=== PATIENT | female | born 1965 | race Caucasian/White ===

== ENCOUNTER 2017-02-19 15:19 | Inpatient (IN) | payer BC, OTHER ==
[~2017-02-19] VITALS: Ht 157.5 cm; Wt 64.2 kg
[2017-02-19 15:31] VITALS: BP 178/86; PULSE 90; RESP 19; TEMP 99.4; O2SAT 98
--- NOTE | 2017-02-19 15:39 | PD ---
HPI Chief Complaint: BA Time Seen by Provider: 15:28 Travel History International Travel<30 days: No Contact w/Intl Traveler<30days: No Traveled to known affect area: No History of Present Illness HPI Patient is a 51-year-old female who was brought to emergency room by PD under pemberton act for evaluation. As per PD, patient has been going into different condo 's and has been sneaking into homes and stealing items. PD found patient to be "unsafe to herself." Patient denies suicidal or homicidal ideations, denies use of drugs or alcohol, reports "I don't know why I was in the other condo's." [facility] Past Medical History Medical History: Denies Significant Hx Past Surgical History Surgical History: No Previous Surgery Social History Alcohol Use: No Tobacco Use: No Substance Use: No Allergies-Medications (Allergen,Severity, Reaction): Coded Allergies: No Known Allergies (Unverified , 02/19/17) Reported Meds & Prescriptions Reported Meds & Active Scripts Active No Active Prescriptions or Reported Medications Review of Systems General / Constitutional: No: Fever Eyes: No: Visual changes HENT: No: Headaches Cardiovascular: No: Chest Pain or Discomfort Respiratory: No: Shortness of Breath Gastrointestinal: No: Abdominal Pain Genitourinary: No: Dysuria Musculoskeletal: No: Pain Skin: No Rash Neurologic: No: Weakness Psychiatric: Positive: Disorder of Thought, Mood Disorder, No: Depression, Homicidal Ideation Endocrine: No: Polydipsia Hematologic/Lymphatic: No: Easy Bruising Physical Exam Narrative GENERAL: NAD SKIN: Focused skin assessment warm/dry. HEAD: Atraumatic. Normocephalic. EYES: Pupils equal and round. No scleral icterus. No injection or drainage. ENT: No nasal bleeding or discharge. Mucous membranes pink and moist. NECK: Trachea midline. No JVD. CARDIOVASCULAR: Regular rate and rhythm. No murmur appreciated. RESPIRATORY: No accessory muscle use. Clear to auscultation. Breath sounds equal bilaterally. GASTROINTESTINAL: Abdomen soft, non-tender, nondistended. Hepatic and splenic margins not palpable. MUSCULOSKELETAL: No obvious deformities. No clubbing. No cyanosis. No edema. NEUROLOGICAL: Awake and alert. No obvious cranial nerve deficits. Motor grossly within normal limits. Normal speech. PSYCHIATRIC: Agitated mood and affect; patient with a flight of ideas on evaluation MDM Medical Decision Making Medical Screen Exam Complete: Yes Emergency Medical Condition: Yes Medical Record Reviewed: Yes Differential Diagnosis ?Bipolar disorder Narrative Course Psychiatric labs ordered. Patient with no SI or HI, patient contacts for safety Scripts No Active Prescriptions or Reported Meds Latosha Thorne DO Feb 19, 2017 15:39
[2017-02-19 16:08] LABS: AUTOMATED NEUTROPHIL # 5.6 TH/MM3 (1.8-7.7); BASOPHIL # 0.1 TH/MM3 (0-0.2); BASOPHIL % 0.9 % (0.0-2.0); EOSINOPHIL # 0.1 TH/MM3 (0-0.4); EOSINOPHIL % 0.9 % (0.0-4.0); HEMATOCRIT 43.7 % (35.0-46.0); LYMPH % 27.9 % (9.0-44.0); LYMPHOCYTE # 2.5 TH/MM3 (1.0-4.8); MEAN CELL VOLUME 92.6 FL (80.0-100.0); MEAN CORPUSCULAR HEMOGLOBIN 29.8 PG (27.0-34.0); MEAN CORPUSCULAR HGB CONC 32.2 % (32.0-36.0); MEAN PLATELET VOLUME 9.2 FL (7.0-11.0); MONO % 8.5 % (0.0-8.0); MONOCYTE # 0.8 TH/MM3 (0-0.9); NEUT % 61.8 % (16.0-70.0); PLATELET COUNT 279 TH/MM3 (150-450); RED BLOOD COUNT 4.72 MIL/MM3 (4.00-5.30); RED CELL DISTRIBUTION WIDTH 13.9 % (11.6-17.2); WHITE BLOOD COUNT 9.1 TH/MM3 (4.0-11.0)
[2017-02-19 16:40] LABS: ALBUMIN 4.1 GM/DL (3.4-5.0); ALT (GPT) 30 U/L (10-53); AST (GOT) 27 U/L (15-37); BICARBONATE 26.2 MEQ/L (21.0-32.0); BLOOD UREA NITROGEN 18 MG/DL (7-18); CALCIUM 8.6 MG/DL (8.5-10.1); CHLORIDE 106 MEQ/L (98-107); CREATININE 1.08 MG/DL (0.50-1.00); GLOMERULAR FILTRATION RATE 53 ML/MIN (>89); GLUCOSE,RANDOM 130 MG/DL (74-106); SODIUM (NA) 141 MEQ/L (136-145)
[2017-02-19 16:43] LABS: ALKALINE PHOSPHATASE 86 U/L (45-117); TOTAL BILIRUBIN ADULT 0.4 MG/DL (0.2-1.0); TOTAL PROTEIN 8.4 GM/DL (6.4-8.2)
[2017-02-19 17:47] VITALS: BP 185/85; PULSE 86; RESP 18; TEMP 98.2; O2SAT 99
--- NOTE | 2017-02-19 18:42 | PD ---
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 As per the documentation she was " entering open condos for the past three days and taking random things and hiding them in different places" . PD found patient to be "unsafe to herself." It is also reported that she has not been medication as prescribed. EMR is reviewed. No previous contact with [facility] psychiatry dept. Current toxicology is positive for cannabinoids. Patient is seen in J pod. She appears stated age, dressed in [facility] with appropriate grooming. She is cooperative. She is hyperverbal and circumstantial. Reports that she has no recollection of her wandering or going into other rooms. She does report a 3 day period of interrupted sleep. Attributes to " going on in neighborhood". Attributes her behaviors to being dehydrated. She also reports that she has been cleaning a lot in the past 3 days because she is having company. Denies any suicdal or homicidal ideation, intent or plan. She denies any anxiety or depression. She denies any use of substances although her toxicology is positive for cannabinoids. In terms of psychiatric history she reports she took Prozac for 6 months " after I suffered a loss" but has not taken it in over 6 months. She would not elaborate on the nature of the loss. Telephone call with patient's verbal consent to her mother,Una Carson for collateral information at [phone]. Patient's father and mother are on their way to [place] and will arrive tomorrow afternoon. They deny that she has ever had any previous psychiatric history. Her father does report that she began a new medication last week to treat her eczema and that last week she called him and was " rambling on and not making much sense" . When I asked the patient about the medication she denies that he is taking any medication. PFSH Past Medical History Medical History: Denies Significant Hx Medical other: Yes (PT RAMBLED ON AND ATTEMPTED TO AVOID TALKING ABOUT MED HISTORY) ?: Not Past Surgical History Surgical History: No Previous Surgery Psychiatric History Psychiatric History Hx Psychiatric Treatment: Pt denied any previous. Did take Prozac x 6 months and currently not taking No previous hx of suicde atempts. History of Inpatient Treatment: No Guns or firearms in home: No Social History Single female, originally from [place]. Moved to [place] in 1991. 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 Hx Alcohol Use: No Hx Tobacco Use: No Hx Substance Use: Yes Substance Use Type: Alcohol, Marijuana Other Substances Used: occasionally Hx of Substance Use Treatment: No Family Psychiatric History None reported Allergies-Medications (Allergen,Severity, Reaction): Coded Allergies: No Known Allergies (Unverified , 02/19/17) Reported Meds & Prescriptions Reported Meds & Active Scripts Active No Active Prescriptions or Reported Medications Review of Systems Immunologic/allergic: COMPLAINS OF: Eczema Except as stated in HPI: all other systems reviewed are Neg Mental Status Examination Appearance: Appropriate Consciousness: Alert Orientation: x4 Motor Activity: Normal gait Speech: Rapid Language: Adequate Fund of Knowledge: Adequate Attention and Concentration: Adequate Memory: Impaired (reports has no memory of recent events) Mood: Appropriate Affect: Appropriate Thought Process & Associations: Circumstantial Thought Content: Appropriate Hallucination Type: None Delusion Type: None Suicidal Ideation: No Suicidal Plan: No Suicidal Intention: No Homicidal Ideation: No Homicidal Plan: No Homicidal Intention: No Insight: Poor Judgment: Impulsive MDM Medical Decision Making Medical Record Reviewed: Yes Assessment/Plan 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 As per the documentation she was " entering open condos for the past three days and taking random things and hiding them in different places" . PD found patient to be "unsafe to herself." It is also reported that she has not been medication as prescribed. Patient reports impaired sleep x 3 days, cleaning a lot as well as possibly being dehydrated. There is no suicidality or homicidality. Due to recent behaviors of what appear to be manic behavior in absence of nay previous psychiatric history , no previous contact [facility] psychiatry she will be admitted to inpatient psychiatry for further evaluation, stabilization and to maintain safety. Case discussed with Dr. Shane . Orders Orders Complete Blood Count With Diff (02/19/17 15:28) Comprehensive Metabolic Panel (02/19/17 15:28) Psych Screen (02/19/17 15:28) Drug Screen, Random Urine (02/19/17 15:28) Diet Regular Basic (02/19/17 Dinner) Results Vital Signs Date Time Temp Pulse Resp B/P (MAP) Pulse Ox O2 Delivery O2 Flow Rate FiO2 02/19/17 17:47 98.2 86 18 185/85 (118) 99 Room Air 02/19/17 15:31 99.4 90 19 178/86 (116) 98 Laboratory Tests Test 02/19/17 15:40 02/19/17 15:45 Urine Opiates Screen NEG Urine Barbiturates Screen NEG Urine Amphetamines Screen NEG Urine Benzodiazepines Screen NEG Urine Cocaine Screen NEG Urine Cannabinoids Screen POS White Blood Count 9.1 Red Blood Count 4.72 Hemoglobin 14.0 Hematocrit 43.7 Mean Corpuscular Volume 92.6 Mean Corpuscular Hemoglobin 29.8 Mean Corpuscular Hemoglobin Concent 32.2 Red Cell Distribution Width 13.9 Platelet Count 279 Mean Platelet Volume 9.2 Neutrophils (%) (Auto) 61.8 Lymphocytes (%) (Auto) 27.9 Monocytes (%) (Auto) 8.5 Eosinophils (%) (Auto) 0.9 Basophils (%) (Auto) 0.9 Neutrophils # (Auto) 5.6 Lymphocytes # (Auto) 2.5 Monocytes # (Auto) 0.8 Eosinophils # (Auto) 0.1 Basophils # (Auto) 0.1 CBC Comment DIFF FINAL Differential Comment Blood Urea Nitrogen 18 Creatinine 1.08 Random Glucose 130 Total Protein 8.4 Albumin 4.1 Calcium Level 8.6 Alkaline Phosphatase 86 Aspartate Amino Transf (AST/SGOT) 27 Alanine Aminotransferase (ALT/SGPT) 30 Total Bilirubin 0.4 Sodium Level 141 Potassium Level 3.5 Chloride Level 106 Carbon Dioxide Level 26.2 Anion Gap 9 Estimat Glomerular Filtration Rate 53 Diagnosis Primary Impression: Hypomanic episode Admitting Information Admitting Physician Requests: Admit (Dr. Shane) Prescriptions No Active Prescriptions or Reported Meds Sarah Goodwin [facility] Feb 19, 2017 18:42
--- NOTE | 2017-02-19 18:42 | PD ---
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 As per the documentation she was " entering open condos for the past three days and taking random things and hiding them in different places" . PD found patient to be "unsafe to herself." It is also reported that she has not been medication as prescribed. EMR is reviewed. No previous contact with [facility] psychiatry dept. Current toxicology is positive for cannabinoids. Patient is seen in J pod. She appears stated age, dressed in [facility] with appropriate grooming. She is cooperative. She is hyperverbal and circumstantial. Reports that she has no recollection of her wandering or going into other rooms. She does report a 3 day period of interrupted sleep. Attributes to " going on in neighborhood". Attributes her behaviors to being dehydrated. She also reports that she has been cleaning a lot in the past 3 days because she is having company. Denies any suicdal or homicidal ideation, intent or plan. She denies any anxiety or depression. She denies any use of substances although her toxicology is positive for cannabinoids. In terms of psychiatric history she reports she took Prozac for 6 months " after I suffered a loss" but has not taken it in over 6 months. She would not elaborate on the nature of the loss. Telephone call with patient's verbal consent to her mother,Una Carson for collateral information at [phone]. Patient's father and mother are on their way to [place] and will arrive tomorrow afternoon. They deny that she has ever had any previous psychiatric history. Her father does report that she began a new medication last week to treat her eczema and that last week she called him and was " rambling on and not making much sense" . When I asked the patient about the medication she denies that he is taking any medication. PFSH Past Medical History Medical History: Denies Significant Hx Medical other: Yes (PT RAMBLED ON AND ATTEMPTED TO AVOID TALKING ABOUT MED HISTORY) ?: Not Past Surgical History Surgical History: No Previous Surgery Psychiatric History Psychiatric History Hx Psychiatric Treatment: Pt denied any previous. Did take Prozac x 6 months and currently not taking No previous hx of suicde atempts. History of Inpatient Treatment: No Guns or firearms in home: No Social History Single female, originally from [place]. 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 Hx Alcohol Use: No Hx Tobacco Use: No Hx Substance Use: Yes Substance Use Type: Alcohol, Marijuana Other Substances Used: occasionally Hx of Substance Use Treatment: No Family Psychiatric History None reported Allergies-Medications (Allergen,Severity, Reaction): Coded Allergies: No Known Allergies (Unverified , 02/19/17) Reported Meds & Prescriptions Reported Meds & Active Scripts Active No Active Prescriptions or Reported Medications Review of Systems Immunologic/allergic: COMPLAINS OF: Eczema Except as stated in HPI: all other systems reviewed are Neg Mental Status Examination Appearance: Appropriate Consciousness: Alert Orientation: x4 Motor Activity: Normal gait Speech: Rapid Language: Adequate Fund of Knowledge: Adequate Attention and Concentration: Adequate Memory: Impaired (reports has no memory of recent events) Mood: Appropriate Affect: Appropriate Thought Process & Associations: Circumstantial Thought Content: Appropriate Hallucination Type: None Delusion Type: None Suicidal Ideation: No Suicidal Plan: No Suicidal Intention: No Homicidal Ideation: No Homicidal Plan: No Homicidal Intention: No Insight: Poor Judgment: Impulsive MDM Medical Decision Making Medical Record Reviewed: Yes Assessment/Plan 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 As per the documentation she was " entering open condos for the past three days and taking random things and hiding them in different places" . PD found patient to be "unsafe to herself." It is also reported that she has not been medication as prescribed. Patient reports impaired sleep x 3 days, cleaning a lot as well as possibly being dehydrated. There is no suicidality or homicidality. Due to recent behaviors of what appear to be manic behavior in absence of nay previous psychiatric history , no previous contact [facility] psychiatry she will be admitted to inpatient psychiatry for further evaluation, stabilization and to maintain safety. Case discussed with Dr. Shane . Orders Orders Complete Blood Count With Diff (02/19/17 15:28) Comprehensive Metabolic Panel (02/19/17 15:28) Psych Screen (02/19/17 15:28) Drug Screen, Random Urine (02/19/17 15:28) Diet Regular Basic (02/19/17 Dinner) Results Vital Signs Date Time Temp Pulse Resp B/P (MAP) Pulse Ox O2 Delivery O2 Flow Rate FiO2 02/19/17 17:47 98.2 86 18 185/85 (118) 99 Room Air 02/19/17 15:31 99.4 90 19 178/86 (116) 98 Laboratory Tests Test 02/19/17 15:40 02/19/17 15:45 Urine Opiates Screen NEG Urine Barbiturates Screen NEG Urine Amphetamines Screen NEG Urine Benzodiazepines Screen NEG Urine Cocaine Screen NEG Urine Cannabinoids Screen POS White Blood Count 9.1 Red Blood Count 4.72 Hemoglobin 14.0 Hematocrit 43.7 Mean Corpuscular Volume 92.6 Mean Corpuscular Hemoglobin 29.8 Mean Corpuscular Hemoglobin Concent 32.2 Red Cell Distribution Width 13.9 Platelet Count 279 Mean Platelet Volume 9.2 Neutrophils (%) (Auto) 61.8 Lymphocytes (%) (Auto) 27.9 Monocytes (%) (Auto) 8.5 Eosinophils (%) (Auto) 0.9 Basophils (%) (Auto) 0.9 Neutrophils # (Auto) 5.6 Lymphocytes # (Auto) 2.5 Monocytes # (Auto) 0.8 Eosinophils # (Auto) 0.1 Basophils # (Auto) 0.1 CBC Comment DIFF FINAL Differential Comment Blood Urea Nitrogen 18 Creatinine 1.08 Random Glucose 130 Total Protein 8.4 Albumin 4.1 Calcium Level 8.6 Alkaline Phosphatase 86 Aspartate Amino Transf (AST/SGOT) 27 Alanine Aminotransferase (ALT/SGPT) 30 Total Bilirubin 0.4 Sodium Level 141 Potassium Level 3.5 Chloride Level 106 Carbon Dioxide Level 26.2 Anion Gap 9 Estimat Glomerular Filtration Rate 53 Diagnosis Primary Impression: Hypomanic episode Admitting Information Admitting Physician Requests: Admit (Dr. Shane) Prescriptions No Active Prescriptions or Reported Meds Sarah Goodwin [facility] Feb 19, 2017 18:42
--- NOTE | 2017-02-19 18:42 | PD ---
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 As per the documentation she was " entering open condos for the past three days and taking random things and hiding them in different places" . PD found patient to be "unsafe to herself." It is also reported that she has not been medication as prescribed. EMR is reviewed. No previous contact with [facility] psychiatry dept. Current toxicology is positive for cannabinoids. Patient is seen in J pod. She appears stated age, dressed in [facility] with appropriate grooming. She is cooperative. She is hyperverbal and circumstantial. Reports that she has no recollection of her wandering or going into other rooms. She does report a 3 day period of interrupted sleep. Attributes to " going on in neighborhood". Attributes her behaviors to being dehydrated. She also reports that she has been cleaning a lot in the past 3 days because she is having company. Denies any suicdal or homicidal ideation, intent or plan. She denies any anxiety or depression. She denies any use of substances although her toxicology is positive for cannabinoids. In terms of psychiatric history she reports she took Prozac for 6 months " after I suffered a loss" but has not taken it in over 6 months. She would not elaborate on the nature of the loss. Telephone call with patient's verbal consent to her mother,Una Carson for collateral information at [phone]. Patient's father and mother are on their way to [place] and will arrive tomorrow afternoon. They deny that she has ever had any previous psychiatric history. Her father does report that she began a new medication last week to treat her eczema and that last week she called him and was " rambling on and not making much sense" . When I asked the patient about the medication she denies that he is taking any medication. PFSH Past Medical History Medical History: Denies Significant Hx Medical other: Yes (PT RAMBLED ON AND ATTEMPTED TO AVOID TALKING ABOUT MED HISTORY) ?: Not Past Surgical History Surgical History: No Previous Surgery Psychiatric History Psychiatric History Hx Psychiatric Treatment: Pt denied any previous. Did take Prozac x 6 months and currently not taking No previous hx of suicde atempts. History of Inpatient Treatment: No Guns or firearms in home: No Social History Single female, originally from [place]. 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 Hx Alcohol Use: No Hx Tobacco Use: No Hx Substance Use: Yes Substance Use Type: Alcohol, Marijuana Other Substances Used: occasionally Hx of Substance Use Treatment: No Family Psychiatric History None reported Allergies-Medications (Allergen,Severity, Reaction): Coded Allergies: No Known Allergies (Unverified , 02/19/17) Reported Meds & Prescriptions Reported Meds & Active Scripts Active No Active Prescriptions or Reported Medications Review of Systems Immunologic/allergic: COMPLAINS OF: Eczema Except as stated in HPI: all other systems reviewed are Neg Mental Status Examination Appearance: Appropriate Consciousness: Alert Orientation: x4 Motor Activity: Normal gait Speech: Rapid Language: Adequate Fund of Knowledge: Adequate Attention and Concentration: Adequate Memory: Impaired (reports has no memory of recent events) Mood: Appropriate Affect: Appropriate Thought Process & Associations: Circumstantial Thought Content: Appropriate Hallucination Type: None Delusion Type: None Suicidal Ideation: No Suicidal Plan: No Suicidal Intention: No Homicidal Ideation: No Homicidal Plan: No Homicidal Intention: No Insight: Poor Judgment: Impulsive MDM Medical Decision Making Medical Record Reviewed: Yes Assessment/Plan 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 As per the documentation she was " entering open condos for the past three days and taking random things and hiding them in different places" . PD found patient to be "unsafe to herself." It is also reported that she has not been medication as prescribed. Patient reports impaired sleep x 3 days, cleaning a lot as well as possibly being dehydrated. There is no suicidality or homicidality. Due to recent behaviors of what appear to be manic behavior in absence of nay previous psychiatric history , no previous contact [facility] psychiatry she will be admitted to inpatient psychiatry for further evaluation, stabilization and to maintain safety. Case discussed with Dr. Shane . Orders Orders Complete Blood Count With Diff (02/19/17 15:28) Comprehensive Metabolic Panel (02/19/17 15:28) Psych Screen (02/19/17 15:28) Drug Screen, Random Urine (02/19/17 15:28) Diet Regular Basic (02/19/17 Dinner) Results Vital Signs Date Time Temp Pulse Resp B/P (MAP) Pulse Ox O2 Delivery O2 Flow Rate FiO2 02/19/17 17:47 98.2 86 18 185/85 (118) 99 Room Air 02/19/17 15:31 99.4 90 19 178/86 (116) 98 Laboratory Tests Test 02/19/17 15:40 02/19/17 15:45 Urine Opiates Screen NEG Urine Barbiturates Screen NEG Urine Amphetamines Screen NEG Urine Benzodiazepines Screen NEG Urine Cocaine Screen NEG Urine Cannabinoids Screen POS White Blood Count 9.1 Red Blood Count 4.72 Hemoglobin 14.0 Hematocrit 43.7 Mean Corpuscular Volume 92.6 Mean Corpuscular Hemoglobin 29.8 Mean Corpuscular Hemoglobin Concent 32.2 Red Cell Distribution Width 13.9 Platelet Count 279 Mean Platelet Volume 9.2 Neutrophils (%) (Auto) 61.8 Lymphocytes (%) (Auto) 27.9 Monocytes (%) (Auto) 8.5 Eosinophils (%) (Auto) 0.9 Basophils (%) (Auto) 0.9 Neutrophils # (Auto) 5.6 Lymphocytes # (Auto) 2.5 Monocytes # (Auto) 0.8 Eosinophils # (Auto) 0.1 Basophils # (Auto) 0.1 CBC Comment DIFF FINAL Differential Comment Blood Urea Nitrogen 18 Creatinine 1.08 Random Glucose 130 Total Protein 8.4 Albumin 4.1 Calcium Level 8.6 Alkaline Phosphatase 86 Aspartate Amino Transf (AST/SGOT) 27 Alanine Aminotransferase (ALT/SGPT) 30 Total Bilirubin 0.4 Sodium Level 141 Potassium Level 3.5 Chloride Level 106 Carbon Dioxide Level 26.2 Anion Gap 9 Estimat Glomerular Filtration Rate 53 Diagnosis Primary Impression: Hypomanic episode Admitting Information Admitting Physician Requests: Admit (Dr. Shane) Prescriptions No Active Prescriptions or Reported Meds Sarah Goodwin [facility] Feb 19, 2017 18:42
[2017-02-19] MEDS ORDERED: MAGNESIUM HYDROXIDE SUSP 30 ML CUP PO PRN (21:00)
[2017-02-19] MEDS ORDERED: ALUMINUM/MAGNESIUM/SIMETH 30 ML CUP PO PRN (21:00)
[2017-02-19] MEDS ORDERED: ACETAMINOPHEN 325 MG TAB PO PRN (21:00)
[2017-02-19 22:30] VITALS: BP 168/94; PULSE 77; RESP 18; TEMP 98.3; O2SAT 99
[2017-02-20 06:49] VITALS: BP 197/91; PULSE 71; RESP 18; TEMP 98.3; O2SAT 99
[2017-02-20 06:51] VITALS: BP 163/89; PULSE 78; RESP 18; TEMP 98.3; O2SAT 99
[2017-02-20] MEDS ORDERED: NICOTINE 21 MG/24 HR PATCH T-DERMAL SCH (09:00)
[2017-02-20] MEDS ORDERED: REMOVE OLD NICODERM (NICOTINE) PATCH T-DERMAL SCH (09:00)
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
--- NOTE | 2017-02-20 11:54 | HHI.DS ---
Psychiatry Discharge Summary Inpatient Psychiatric care?: Yes Advance Directive: No Reason Not Provided: NONE Mental Health AdvanceDirective: No Health Care Proxy: No Admission Admission Date Feb 19, 2017 at 21:00 Admission Diagnosis: (1) Dissociative identity disorder ICD Code: F44.81 - Dissociative identity disorder (2) Brief psychotic disorder ICD Code: F23 - Brief psychotic disorder Brief History Patient is a 51-year-old white female comes here initially under Perez act by the nurse lucinda [place] [employer] dated 02/19/17 at 0250 p.m. with document reviewed initially stating that subject has been entering open condos and has been doing this the past 3 days she had been taking random things and hiding them in different places. She enters room to of [employer] and took a cell phone and other items. Make contact with neighbors of subject and they advised she has not taken her meds (Prozac) and days and hasn't been acting herself she was taken into protective custody. Patient seen screened in the ED urine toxicology positive for marijuana. Patient seen in her room with nurse Thurman and family practice resident wally. Patient alert oriented white female who appears somewhat younger than stated age long blonde hair clean and neat. Sitting she has no memory of these events. She appears to ascribe them are being tired and dehydrated. She continues to verify the fact that she does not remember anything of it. When asked about her marijuana use she minimizes that saying it is a "natural" product she may use it less than once a week. She denies any significant alcohol use. She denies any suicidality homicidality voices or visions. She denies any prior psychiatric contact hospitalizations a psychotropic medications. She states she has pet dogs, the few years ago for fever pet dog suddenly she became quite depressed and was placed on Prozac for a while but is been off it for a number of months. 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 She is more successful earlier in her life that she developed severe psoriasis on on her palms and soles of her feet forcing her to closure office. She is having a marked difficult time financially be able to get the medication that helps control her psoriasis such as embral. Patient is single was briefly many years ago has no children. She does have a supportive family who lives in [facility]. Mother and father have driven down here. I did meet with the mother father patient counselor Cathy and nurse Aleksandra after my initial session. Family for length some areas. It appears patient has had some difficulties in the past with financial issues and the father has helped throughout. It appears they were where the patient's marijuana use. Event at the present time patient does not meet criteria for involuntary psychiatric hospitalization. We did discuss this with the family and the patient mother and father do wish that they could take their daughter home with that the [facility] to get further care and attention there while they help care for her. Patient is quite willing to do this also. Thus I will lift the [place] act allow the patient to be discharged to her mother and father today the been no Rx by me. They will leave either today or tomorrow morning to drive back to [place] be of further care for the PCP and mental health professional Tobacco Use In Past 30 Days: No Tobacco Past 30 Days Alcohol Use: Monthly or Less Hospital Course Please see above dictation under brief history. Patient does not meet criteria for inpatient psychiatric stay I will lift the Perez act. Patient to be discharged to her parents today parents to take their daughter home that to [facility] for further care and attention. No Rx by me patient does denies suicidality homicidality voices or visions. Does not meet criteria for involuntary psychiatric hospitalization under the Perez act Results Blood Pressure 163 / 89 Vital Signs Date Time Temp Pulse Resp B/P (MAP) Pulse Ox O2 Delivery O2 Flow Rate FiO2 02/20/17 06:51 98.3 78 18 163/89 (113) 99 02/19/17 17:47 Room Air Laboratory Tests Test 02/19/17 15:40 02/19/17 15:45 02/20/17 10:16 Urine Cannabinoids Screen POS (NEG) Monocytes (%) (Auto) 8.5 % (0.0-8.0) Creatinine 1.08 MG/DL (0.50-1.00) Random Glucose 130 MG/DL (74-106) Total Protein 8.4 GM/DL (6.4-8.2) Estimat Glomerular Filtration Rate 53 ML/MIN (>89) Laboratory Results Test 02/20/17 10:16 Summary of Procedures None done Pending results at discharge: No Medications # of Antipsychotic meds at D/C: 0 Approp Antipsych med options 1 - Minimum of three failed multiple trials of monotherapy. 2 - Documented plan to taper to monotherapy due to previous use of multiple meds OR cross-taper in progress at D/C. 3 - Documentation of augmentation of Clozapine. 4 - Justification other than those listed in allowable values 1-3, document here : Discharge Discharge Date: Feb 20, 2017 Discharge Diagnosis: (1) Dissociative identity disorder Diagnosis: Principal ICD Code: F44.81 - Dissociative identity disorder (2) Brief psychotic disorder Diagnosis: Secondary ICD Code: F23 - Brief psychotic disorder Pt Condition on Discharge: Stable Discharge Disposition: Discharge Home Discharge Instructions Diet Instructions: As Tolerated, No Restrictions Activities you can perform: Regular-No Restrictions Scheduled Appointment: follow-up PCP and mental health clinician in [place] in [facility] Discharge Time > 30 minutes Mental Status Examination Appearance: Appropriate Consciousness: Alert Orientation: x4 Motor Activity: Normal gait Speech: Unremarkable Language: Adequate Fund of Knowledge: Adequate Attention and Concentration: Adequate Memory: Impaired (reports has no memory of recent events) Mood: Appropriate Affect: Appropriate Thought Process & Associations: Intact, Circumstantial (mildly) Thought Content: Appropriate Hallucination Type: None Delusion Type: None Suicidal Ideation: No Suicidal Plan: No Suicidal Intention: No Homicidal Ideation: No Homicidal Plan: No Homicidal Intention: No Insight: Fair Judgment: Adequate Discharge/Advance Care Plan Health Problems: (1) Dissociative identity disorder (2) Brief psychotic disorder Goals to promote your health * To prevent worsening of your condition and complications * To maintain your health at the optimal level Directions to meet your goals Take your medications as prescribed Follow your dietary instruction Follow activity as directed Keep your appointments as scheduled Take your immunizations and boosters as scheduled If your symptoms worsen call your PCP, if no PCP go to Urgent Care Center or Emergency Room For 24/ questions related to your inpatient stay or results of tests pending at discharge, please contact Dr. Nam Shane at Smoking is Dangerous to Your Health. Avoid second hand smoking Nam Shane MD Feb 20, 2017 11:53
--- NOTE | 2017-02-20 11:54 | HHI.DS ---
Psychiatry Discharge Summary Inpatient Psychiatric care?: Yes Advance Directive: No Reason Not Provided: NONE Mental Health AdvanceDirective: No Health Care Proxy: No Admission Admission Date Feb 19, 2017 at 21:00 Admission Diagnosis: (1) Dissociative identity disorder ICD Code: F44.81 - Dissociative identity disorder (2) Brief psychotic disorder ICD Code: F23 - Brief psychotic disorder Brief History Patient is a 51-year-old white female comes here initially under Perez act by the nurse [employer] [employer] dated 02/19/17 at 0250 p.m. with document reviewed initially stating that subject has been entering open condos and has been doing this the past 3 days she had been taking random things and hiding them in different places. She enters room to of [place] and took a cell phone and other items. Make contact with neighbors of subject and they advised she has not taken her meds (Prozac) and days and hasn't been acting herself she was taken into protective custody. Patient seen screened in the ED urine toxicology positive for marijuana. Patient seen in her room with nurse Thurman and family practice resident awlly. Patient alert oriented white female who appears somewhat younger than stated age long blonde hair clean and neat. Sitting she has no memory of these events. She appears to ascribe them are being tired and dehydrated. She continues to verify the fact that she does not remember anything of it. When asked about her marijuana use she minimizes that saying it is a "natural" product she may use it less than once a week. She denies any significant alcohol use. She denies any suicidality homicidality voices or visions. She denies any prior psychiatric contact hospitalizations a psychotropic medications. She states she has pet dogs, the few years ago for fever pet dog suddenly she became quite depressed and was placed on Prozac for a while but is been off it for a number of months. 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 She is more successful earlier in her life that she developed severe psoriasis on on her palms and soles of her feet forcing her to closure office. She is having a marked difficult time financially be able to get the medication that helps control her psoriasis such as embral. Patient is single was briefly many years ago has no children. She does have a supportive family who lives in [facility]. Mother and father have driven down here. I did meet with the mother father patient counselor Cathy and nurse Aleksandra after my initial session. Family for length some areas. It appears patient has had some difficulties in the past with financial issues and the father has helped throughout. It appears they were where the patient's marijuana use. Event at the present time patient does not meet criteria for involuntary psychiatric hospitalization. We did discuss this with the family and the patient mother and father do wish that they could take their daughter home with that the [facility] to get further care and attention there while they help care for her. Patient is quite willing to do this also. Thus I will lift the [employer] act allow the patient to be discharged to her mother and father today the been no Rx by me. They will leave either today or tomorrow morning to drive back to [place] be of further care for the PCP and mental health professional Tobacco Use In Past 30 Days: No Tobacco Past 30 Days Alcohol Use: Monthly or Less Hospital Course Please see above dictation under brief history. Patient does not meet criteria for inpatient psychiatric stay I will lift the Perez act. Patient to be discharged to her parents today parents to take their daughter home that to [facility] for further care and attention. No Rx by me patient does denies suicidality homicidality voices or visions. Does not meet criteria for involuntary psychiatric hospitalization under the Perez act Results Blood Pressure 163 / 89 Vital Signs Date Time Temp Pulse Resp B/P (MAP) Pulse Ox O2 Delivery O2 Flow Rate FiO2 02/20/17 06:51 98.3 78 18 163/89 (113) 99 02/19/17 17:47 Room Air Laboratory Tests Test 02/19/17 15:40 02/19/17 15:45 02/20/17 10:16 Urine Cannabinoids Screen POS (NEG) Monocytes (%) (Auto) 8.5 % (0.0-8.0) Creatinine 1.08 MG/DL (0.50-1.00) Random Glucose 130 MG/DL (74-106) Total Protein 8.4 GM/DL (6.4-8.2) Estimat Glomerular Filtration Rate 53 ML/MIN (>89) Laboratory Results Test 02/20/17 10:16 Summary of Procedures None done Pending results at discharge: No Medications # of Antipsychotic meds at D/C: 0 Approp Antipsych med options 1 - Minimum of three failed multiple trials of monotherapy. 2 - Documented plan to taper to monotherapy due to previous use of multiple meds OR cross-taper in progress at D/C. 3 - Documentation of augmentation of Clozapine. 4 - Justification other than those listed in allowable values 1-3, document here : Discharge Discharge Date: Feb 20, 2017 Discharge Diagnosis: (1) Dissociative identity disorder Diagnosis: Principal ICD Code: F44.81 - Dissociative identity disorder (2) Brief psychotic disorder Diagnosis: Secondary ICD Code: F23 - Brief psychotic disorder Pt Condition on Discharge: Stable Discharge Disposition: Discharge Home Discharge Instructions Diet Instructions: As Tolerated, No Restrictions Activities you can perform: Regular-No Restrictions Scheduled Appointment: follow-up PCP and mental health clinician in [place] in [facility] Discharge Time > 30 minutes Mental Status Examination Appearance: Appropriate Consciousness: Alert Orientation: x4 Motor Activity: Normal gait Speech: Unremarkable Language: Adequate Fund of Knowledge: Adequate Attention and Concentration: Adequate Memory: Impaired (reports has no memory of recent events) Mood: Appropriate Affect: Appropriate Thought Process & Associations: Intact, Circumstantial (mildly) Thought Content: Appropriate Hallucination Type: None Delusion Type: None Suicidal Ideation: No Suicidal Plan: No Suicidal Intention: No Homicidal Ideation: No Homicidal Plan: No Homicidal Intention: No Insight: Fair Judgment: Adequate Discharge/Advance Care Plan Health Problems: (1) Dissociative identity disorder (2) Brief psychotic disorder Goals to promote your health * To prevent worsening of your condition and complications * To maintain your health at the optimal level Directions to meet your goals Take your medications as prescribed Follow your dietary instruction Follow activity as directed Keep your appointments as scheduled Take your immunizations and boosters as scheduled If your symptoms worsen call your PCP, if no PCP go to Urgent Care Center or Emergency Room For 24/ questions related to your inpatient stay or results of tests pending at discharge, please contact Dr. Nam Shane at Smoking is Dangerous to Your Health. Avoid second hand smoking Nam Shane MD Feb 20, 2017 11:53
[2017-02-20 12:08] LABS: BICARBONATE 28.4 MEQ/L (21.0-32.0); BLOOD UREA NITROGEN 18 MG/DL (7-18); CALCIUM 9.4 MG/DL (8.5-10.1); CHLORIDE 105 MEQ/L (98-107); CHOLESTEROL 174 MG/DL (120-200); CREATININE 0.79 MG/DL (0.50-1.00); GLOMERULAR FILTRATION RATE 76 ML/MIN (>89); GLUCOSE,RANDOM 112 MG/DL (74-106); SODIUM (NA) 141 MEQ/L (136-145)
[2017-02-20 12:13] LABS: CHOLESTEROL/ HDL RATIO 1.97 RATIO; HDL CHOLESTEROL 88.2 MG/DL (40.0-60.0); LDL CHOLESTEROL 64 MG/DL (0-99); TRIGLYCERIDES 109 MG/DL (42-150)
[2017-02-20 16:24] LABS: HEMOGLOBIN A1C 5.8 % (4.3-6.0)
== END 2017-02-20 13:15 | disposition home or self-care (01) | DRG 883 ==
LOC: NEPD 15:19 → NEDA 21:00 → H260 22:31
PROVIDERS: ADMIT Psychiatry & Neurology Psychiatry; ATTEND Psychiatry & Neurology Psychiatry
DX: F44.81 Dissociative identity disorder (principal); F23 Brief psychotic disorder; F12.90 Cannabis use, unspecified, uncomplicated; L40.9 Psoriasis, unspecified
CPT/HCPCS: 80048; 80053; 80061; 80307; 83036; 84443; 85025

== ENCOUNTER 2018-01-06 09:33 | Inpatient (IN) ==
--- NOTE | 2018-01-06 10:11 | ED ---
HPI General Chief Complaint: Psychiatric Symptoms Stated Complaint: psych eval/NSBPD Time Seen by Provider: 01/06/18 09:47 Source: patient Mode of arrival: ambulatory Limitations: no limitations History of Present Illness HPI Narrative: 52-year-old female presents to the emergency department as a Perez act for concern of her well-being. Patient states that she lives in a community that she believes is trying to poison her. She denies suicidal or homicidal ideations. Says she has psoriatic arthritis however, this does not bother her and she does not take medication on a regular basis. She denies illicit drug use or alcohol use. 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 complaint: other (believes someone is trying to poison her) Onset (ago): day(s) Duration: constant History of same: Yes Relieving factors: none Exacerbating factors: none Associated symptoms: denies other symptoms Related Data Home Medications Medication Instructions Recorded Confirmed No Known Home Medications 01/06/18 01/06/18 Allergies Allergy/AdvReac Type Severity Reaction Status Date / Time No Known Allergies Allergy Unverified 02/19/17 15:28 Review of Systems ROS: all other systems reviewed are negative [facility] Medical History Medical History Psoriasis (Acute) Psoriatic arthritis (Acute) Surgical History Surgical History H/O breast augmentation (Acute) Social History Social History Substance History: Active Abuse Second Hand Smoke Exposure: Yes Smoking Status: Former smoker Tobacco Type: Cigarettes How Often Do You Have a Drink Containing Alcohol: Monthly or less Recent Travel in [facility] within the Last 8 Weeks: No Recent Out of Country Travel within the Last 8 Weeks: No Substance Abuse Detail Other: Substance Use Type Other:: medicinal marijuana Substance Use Status: Active Immunization History Tetanus Immunization: <5 Years Hx Influenza Vaccine This Season: No Exam Narrative Exam Narrative: GENERAL: Well-developed, well-nourished, pleasant, tangential historian SKIN: Focused skin assessment warm/dry. HEAD: Atraumatic. Normocephalic. EYES: Pupils equal and round. No scleral icterus. No injection or drainage. ENT: No nasal bleeding or discharge. Mucous membranes pink and moist. NECK: Trachea midline. No JVD. CARDIOVASCULAR: Regular rate and rhythm. No murmur appreciated. RESPIRATORY: No accessory muscle use. Clear to auscultation. Breath sounds equal bilaterally. GASTROINTESTINAL: Abdomen soft, non-tender, nondistended. Hepatic and splenic margins not palpable. MUSCULOSKELETAL: No obvious deformities. No clubbing. No cyanosis. No edema. NEUROLOGICAL: Awake and alert. No obvious cranial nerve deficits. Motor grossly within normal limits. Normal speech. PSYCHIATRIC: Appropriate mood and flat affect Course Initial Documented Vital Signs Temperature 98.8 F 01/06/18 09:45 Pulse Rate 95 H 01/06/18 09:45 Respiratory Rate 20 01/06/18 09:45 Blood Pressure 197/91 H 01/06/18 09:45 Pulse Oximetry 97 01/06/18 09:45 Last Documented Vital Signs Temperature 98.9 F 01/07/18 12:46 Pulse Rate 87 01/07/18 12:46 Respiratory Rate 18 01/07/18 12:46 Blood Pressure 149/87 H 01/07/18 12:46 Pulse Oximetry 98 01/07/18 12:46 Medical Decision Making MDM Narrative Medical decision making narrative: 52-year-old female presents to the emergency department as a Perez act for concern of her well-being. Patient reports that her community is "trying to poison her". She says she is glad that she has not been poison yet but believe she will be. Vital signs are stable. Physical exam findings demonstrate a well-developed, well-nourished 52-year-old female no acute distress. She is rather pleasant to interact with however, does ramble on as previous records indicate. She is rather tangential historian. Her labs are stable. Pt is medically cleared to see psych. Medical Screen Exam Complete: Yes Emergency Medical Condition: Yes Differential Diagnosis Differential Diagnosis: Suicidal ideations, homicidal ideations, delusional disorder Medical Records Medical records reviewed: Yes I reviewed the patient's medical records. After review the EMR, patient presented to the emergency department in January 2017 who was found opening condos and hiding things in different places. She had a psych eval and was supposed to be driven to her parents home in [place]. Lab Data Result diagrams: 01/06/18 10:04 01/06/18 10:04 Lab Results 01/06/18 01/06/18 01/06/18 Range/Units 10:04 10:04 11:42 WBC 6.7 (4.0-11.0) th/mm3 RBC 4.29 (4.00-5.30) mil/mm3 Hgb 12.9 (11.6-15.3) gm/dL Hct 39.6 (35.0-46.0) % MCV 92.3 (80.0-100.0) fL MCH 30.0 (27.0-34.0) pg MCHC 32.5 (32.0-36.0) % RDW 13.7 (11.6-17.2) % Plt Count 287 (150-450) th/mm3 MPV 8.6 (7.0-11.0) fL Neut % (Auto) 63.5 (16.0-70.0) % Lymph % (Auto) 24.9 (9.0-44.0) % [place]alle % (Auto) 9.4 H (0.0-8.0) % Eos % (Auto) 1.4 (0.0-4.0) % Baso % (Auto) 0.8 (0.0-2.0) % Neut # (Auto) 4.3 (1.8-7.7) th/mm3 Lymph # (Auto) 1.7 (1.0-4.8) th/mm3 [place]alle # (Auto) 0.6 (0.0-0.9) th/mm3 Eos # (Auto) 0.1 (0.0-0.4) th/mm3 Baso # (Auto) 0.1 (0.0-0.2) th/mm3 WBC Differential . Differential Comment Auto diff final Sodium 142 (136-145) meq/L Potassium 3.7 (3.5-5.1) meq/L Chloride 107 (98-107) meq/L Carbon Dioxide 24.4 (21.0-32.0) meq/L Anion Gap 11 (5-15) meq/L BUN 16 (7-18) mg/dL Creatinine 0.88 (0.50-1.00) mg/dL Estimated GFR 67 L (>89) mL/min Random Glucose 120 H (74-106) mg/dL Calcium 8.4 L (8.5-10.1) mg/dL Total Bilirubin 0.5 (0.2-1.0) mg/dL AST 29 (15-37) U/L ALT 28 (10-53) U/L Alkaline Phosphatase 76 (45-117) U/L Total Protein 8.1 (6.4-8.2) g/dL Albumin 3.9 (3.4-5.0) g/dL TSH 1.320 (0.358-3.740) uIU/mL Urine Color Straw (Yellw/Straw) Urine Clarity Clear (Clear) Urine pH 7.0 (5.0-8.5) Ur Specific Castell 1.003 (1.002-1.035) Urine Protein Negative (Neg-Trace) mg/dL Urine Glucose (UA) Negative (Negative) mg/dL Urine Ketones Negative (Negative) mg/dL Urine Occult Blood Small H (Negative) Urine Nitrate Negative (Negative) Urine Bilirubin Negative (Negative) Urine Urobilinogen Less than 2 (Less than 2) mg/dL Ur Leukocyte Esterase Moderate H (Negative) Urine RBC 2 (0-3) /hpf Urine WBC 2 (0-5) /hpf Ur Squamous Epith Cells 1 (0-5) /hpf Micro UA Comment Culture not ind Ur Microscopic Review Not Reportable Urine Culture Comments Culture not ind Urine Opiates Screen (Neg) Ur Barbiturates Screen (Neg) Ur Amphetamines Screen (Neg) U Benzodiazepines Scrn (Neg) Urine Cocaine Screen (Neg) U Cannabinoids Screen (Neg) Serum Alcohol Less than 3 (0-5) mg/dL 01/06/18 Range/Units 11:42 WBC (4.0-11.0) th/mm3 RBC (4.00-5.30) mil/mm3 Hgb (11.6-15.3) gm/dL Hct (35.0-46.0) % MCV (80.0-100.0) fL MCH (27.0-34.0) pg MCHC (32.0-36.0) % RDW (11.6-17.2) % Plt Count (150-450) th/mm3 MPV (7.0-11.0) fL Neut % (Auto) (16.0-70.0) % Lymph % (Auto) (9.0-44.0) % Lasalle % (Auto) (0.0-8.0) % Eos % (Auto) (0.0-4.0) % Baso % (Auto) (0.0-2.0) % Neut # (Auto) (1.8-7.7) th/mm3 Lymph # (Auto) (1.0-4.8) th/mm3 Lasalle # (Auto) (0.0-0.9) th/mm3 Eos # (Auto) (0.0-0.4) th/mm3 Baso # (Auto) (0.0-0.2) th/mm3 WBC Differential Differential Comment Sodium (136-145) meq/L Potassium (3.5-5.1) meq/L Chloride (98-107) meq/L Carbon Dioxide (21.0-32.0) meq/L Anion Gap (5-15) meq/L BUN (7-18) mg/dL Creatinine (0.50-1.00) mg/dL Estimated GFR (>89) mL/min Random Glucose (74-106) mg/dL Calcium (8.5-10.1) mg/dL Total Bilirubin (0.2-1.0) mg/dL AST (15-37) U/L ALT (10-53) U/L Alkaline Phosphatase (45-117) U/L Total Protein (6.4-8.2) g/dL Albumin (3.4-5.0) g/dL TSH (0.358-3.740) uIU/mL Urine Color (Yellw/Straw) Urine Clarity (Clear) Urine pH (5.0-8.5) Ur Specific Castell (1.002-1.035) Urine Protein (Neg-Trace) mg/dL Urine Glucose (UA) (Negative) mg/dL Urine Ketones (Negative) mg/dL Urine Occult Blood (Negative) Urine Nitrate (Negative) Urine Bilirubin (Negative) Urine Urobilinogen (Less than 2) mg/dL Ur Leukocyte Esterase (Negative) Urine RBC (0-3) /hpf Urine WBC (0-5) /hpf Ur Squamous Epith Cells (0-5) /hpf Micro UA Comment Ur Microscopic Review Urine Culture Comments Urine Opiates Screen Neg (Neg) Ur Barbiturates Screen Neg (Neg) Ur Amphetamines Screen Neg (Neg) U Benzodiazepines Scrn Neg (Neg) Urine Cocaine Screen Neg (Neg) U Cannabinoids Screen Pos H (Neg) Serum Alcohol (0-5) mg/dL Discharge Plan Discharge Disposition Patient Disposition: 30 Still Patient Discharge Condition Condition: Stable Discharge Details Diagnosis: Delusions, Medical clearance for psychiatric admission Physicians Team ED Provider: Silvia Lyman ED Midlevel Provider: Camila Eldridge Primary Care Provider: UNKNOWN, Attending Provider: Nam Shane Discharge Interventions Interventions: Vital Signs Last Done: 01/07/18 06:40 Status ED Status: Admitted Patient
[2018-01-06 10:21] LABS: Baso # (Auto) 0.1 th/mm3 (0.0-0.2); Baso % (Auto) 0.8 % (0.0-2.0); Eos # (Auto) 0.1 th/mm3 (0.0-0.4); Eos % (Auto) 1.4 % (0.0-4.0); Hematocrit 39.6 % (35.0-46.0); Hemoglobin 12.9 gm/dL (11.6-15.3); Lymph # (Auto) 1.7 th/mm3 (1.0-4.8); Lymph % (Auto) 24.9 % (9.0-44.0); Mean Corpuscular HGB Conc 32.5 % (32.0-36.0); Mean Corpuscular Volume 92.3 fL (80.0-100.0); Mean Platelet Volume 8.6 fL (7.0-11.0); Mono # (Auto) 0.6 th/mm3 (0.0-0.9); Mono % (Auto) 9.4 % (0.0-8.0); Neut # (Auto) 4.3 th/mm3 (1.8-7.7); Neut % (Auto) 63.5 % (16.0-70.0); Platelet Count 287 th/mm3 (150-450); Red Blood Count 4.29 mil/mm3 (4.00-5.30); Red Cell Distribution Width 13.7 % (11.6-17.2); White Blood Count 6.7 th/mm3 (4.0-11.0)
[2018-01-06 10:52] LABS: Albumin 3.9 g/dL (3.4-5.0); Anion Gap 11 meq/L (5-15); Aspartate Aminotransferase 29 U/L (15-37); Blood Urea Nitrogen 16 mg/dL (7-18); Calcium 8.4 mg/dL (8.5-10.1); Carbon Dioxide 24.4 meq/L (21.0-32.0); Chloride 107 meq/L (98-107); Glomerular Filtration Rate 67 mL/min (>89); Glucose,Random 120 mg/dL (74-106); Potassium 3.7 meq/L (3.5-5.1); Sodium 142 meq/L (136-145)
[2018-01-06 10:54] LABS: Alanine Aminotransferase 28 U/L (10-53)
[2018-01-06 11:03] LABS: Alkaline Phosphatase 76 U/L (45-117); Total Protein 8.1 g/dL (6.4-8.2)
[2018-01-06 12:08] LABS: Bilirubin,Urine Negative (Negative); Clarity,Urine Clear (Clear); Color,Urine Straw (Yellw/Straw); Glucose,Urine (UA) Negative (Negative); Leukocyte Esterase,Urine Moderate (Negative); Nitrite,Urine Negative (Negative); Specific Gravity,Urine 1.003 (1.002-1.035); Squamous Epithelial Cell,Urine 1 /hpf (0-5)
[2018-01-06 12:12] LABS: Amphetamine Screen,Urine Neg (Neg); Barbiturate Screen,Urine Neg (Neg); Cannabinoid Screen,Urine Pos (Neg); Cocaine Screen,Urine Neg (Neg)
[2018-01-06 12:19] LABS: Opiate Screen,Urine Neg (Neg)
[2018-01-07] MEDS ORDERED: Aluminum/Magnesium/Simethacone Susp 30 ML UDC PO PRN (12:16)
[2018-01-07] MEDS ORDERED: Acetaminophen 325 MG Tablet PO PRN (12:16)
[2018-01-07] MEDS ORDERED: Bisacodyl 10 MG Supp RECTAL PRN (12:16)
--- NOTE | 2018-01-07 16:33 | P.PNPSY ---
Subjective Remarks: This is a 52 year-old single, female who presents under a police initiated Perez Act for believing that people are breaking into her residence and poisoning her with harsh chemicals. Assessment and Plan - Plan Plan: Estimated LOS: [] days
--- NOTE | 2018-01-07 17:08 | ED ---
HPI - Psych - General Source: patient Mode of arrival: ambulatory Limitations: no limitations - History of Present Illness MD complaint: altered mental status Onset (ago): unknown Duration: constant Relieving factors: none Exacerbating factors: none Associated psychiatric symptoms: delusions Associated symptoms: denies other symptoms Treatments prior to arrival: none - General Chief Complaint: Psychiatric Symptoms Stated Complaint: psych eval/NSBPD Time Seen by Provider: 01/07/18 12:07 - History of Present Illness HPI Narrative: This is a 52 year-old single, female who presents under a police initiated Perez Act for believing that people are breaking into her residence and poisoning her with harsh chemicals. Patient had one previous admission at this facility from 02/19/2017-02/2017 for hypomania. Reviewed electronic medical records, labs, discuss case with staff. Patient's toxicology screen is positive for cannabinoids. Patient was assessed in [facility]. She was found sitting on her mattress on the floor. Patient is awake, alert and oriented. Her speech is clear, logical, organized, of normal avril and volume. She denies feeling suicidal, homicidal, or experiencing auditory or visual hallucinations. When asked why she is here she is off on a tangent stating, "my neighbors are poking me really into doing community theater". When asked why she was here she states "the police chief deputy picked me up and said it is time for you to go". She does report a previous visit at this facility approximately 1 year ago. She states she was discharged to her family and followed up with his psychiatrist who told her that there was nothing wrong with her and she did not need any medications. Staff report they spoken with her father who confirms this and says he was very upset by this turn of events. 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 Her closest family is in [place]. She denies any family history of suicide attempts or mental illness.she denies smoking cigarettes, states that she drinks alcohol rarely, and reports that she is on medical cannabis for psoriatic arthritis. She denies smoking cigarettes, states that she drinks alcohol rarely, and reports that she is on medical cannabis for psoriatic arthritis. (Marina Browning) - Related Data Home Medications Medication Instructions Recorded Confirmed No Known Home Medications 01/06/18 01/06/18 Allergies Allergy/AdvReac Type Severity Reaction Status Date / Time No Known Allergies Allergy Unverified 02/19/17 15:28 Review of Systems All other systems reviewed negative except as stated in HPI PMFSH - History History Provided By: Patient - Medical History Medical History: Medical History (Last Reviewed 01/07/18 @ 17:03 by ANGY Cho) Psoriasis Psoriatic arthritis - Surgical History Surgical History: Surgical History (Last Reviewed 01/07/18 @ 17:03 by ANGY Cho) H/O breast augmentation - Tobacco History Second Hand Smoke Exposure: Yes Tobacco Use In Past 30 Days: Yes Smoking Status: Former smoker Tobacco Type: Cigarettes - Alcohol History How Often Do You Have a Drink Containing Alcohol: Monthly or less - Substance Use History Substance History: Active Abuse - Substance Use Type Other Type: medicinal marijuana Status: Active - Travel History Recent Travel in the [place] Within the Last 8 Weeks: No Recent Travel Out of the Country Within the Last 8 Weeks: No - Immunization History Tetanus Immunization: <5 Years Hx Influenza Vaccine This Season: No Psychiatric History - Psychiatric History Psychiatric Treatment History: History of Psychiatric Treatment, History of Hospitalization in a Psychiatric Facility History of Inpatient Treatment: No Firearms in Home: No - Psychiatric History Patient was seen here one time previously in January for hypomania. (Marina Browning) - Family Psychiatric History Denies (Marina Browning) Physical Exam - General Limitations: no limitations General appearance: alert - Head Head exam: atraumatic - Neurological Exam Neurological exam: Present: alert, oriented X3 - Psychiatric Psychiatric exam: Present: normal affect, normal mood Mental Status Examination Appearance: Appropriate, Well dressed/well groomed Consciousness: Alert Orientation: x4 Motor Activity: Normal gait Speech: Unremarkable Language: Adequate Fund of Knowledge: Adequate Attention and Concentration: Adequate Memory: Unremarkable Mood: Appropriate, Good Affect: Appropriate, Euthymic Thought Process & Associations: Loose associations, Tangential Thought Content: Bizarre thinking Hallucination Type: None Delusion Type: Bizarre, Paranoid Suicidal Ideation: No Suicidal Plan: No Suicidal Intention: No Homicidal Ideation: No Homicidal Plan: No Homicidal Intention: No Insight: Poor Judgment: Impulsive Initial Documented Vital Signs Temperature 98.8 F 01/06/18 09:45 Pulse Rate 95 H 01/06/18 09:45 Respiratory Rate 20 01/06/18 09:45 Blood Pressure 197/91 H 01/06/18 09:45 Pulse Oximetry 97 01/06/18 09:45 Last Documented Vital Signs Temperature 98.6 F 01/07/18 16:41 Pulse Rate 78 01/07/18 16:41 Respiratory Rate 18 01/07/18 16:41 Blood Pressure 170/89 H 01/07/18 16:41 Pulse Oximetry 98 01/07/18 16:41 MDM - Psych - Diagnosis (1) Unspecified psychosis Status: Acute - Lab Data Result diagrams: 01/06/18 10:04 01/06/18 10:04 - MDM Narrative Medical decision making narrative: Given this patient's previous history of a previous hypomanic episode and the fact that she is having paranoid delusions I will admit her to an inpatient psychiatric unit for further evaluation and treatment as deemed necessary. She is being admitted under the Perez act. (Marina Browning) - Lab Data Lab Results 01/06/18 01/06/18 01/06/18 Range/Units 10:04 10:04 11:42 WBC 6.7 (4.0-11.0) th/mm3 RBC 4.29 (4.00-5.30) mil/mm3 Hgb 12.9 (11.6-15.3) gm/dL Hct 39.6 (35.0-46.0) % MCV 92.3 (80.0-100.0) fL MCH 30.0 (27.0-34.0) pg MCHC 32.5 (32.0-36.0) % RDW 13.7 (11.6-17.2) % Plt Count 287 (150-450) th/mm3 MPV 8.6 (7.0-11.0) fL Neut % (Auto) 63.5 (16.0-70.0) % Lymph % (Auto) 24.9 (9.0-44.0) % [place] % (Auto) 9.4 H (0.0-8.0) % Eos % (Auto) 1.4 (0.0-4.0) % Baso % (Auto) 0.8 (0.0-2.0) % Neut # (Auto) 4.3 (1.8-7.7) th/mm3 Lymph # (Auto) 1.7 (1.0-4.8) th/mm3 [place] # (Auto) 0.6 (0.0-0.9) th/mm3 Eos # (Auto) 0.1 (0.0-0.4) th/mm3 Baso # (Auto) 0.1 (0.0-0.2) th/mm3 WBC Differential . Differential Comment Auto diff final Sodium 142 (136-145) meq/L Potassium 3.7 (3.5-5.1) meq/L Chloride 107 (98-107) meq/L Carbon Dioxide 24.4 (21.0-32.0) meq/L Anion Gap 11 (5-15) meq/L BUN 16 (7-18) mg/dL Creatinine 0.88 (0.50-1.00) mg/dL Estimated GFR 67 L (>89) mL/min Random Glucose 120 H (74-106) mg/dL Calcium 8.4 L (8.5-10.1) mg/dL Total Bilirubin 0.5 (0.2-1.0) mg/dL AST 29 (15-37) U/L ALT 28 (10-53) U/L Alkaline Phosphatase 76 (45-117) U/L Total Protein 8.1 (6.4-8.2) g/dL Albumin 3.9 (3.4-5.0) g/dL TSH 1.320 (0.358-3.740) uIU/mL Urine Color Straw (Yellw/Straw) Urine Clarity Clear (Clear) Urine pH 7.0 (5.0-8.5) Ur Specific Smiley 1.003 (1.002-1.035) Urine Protein Negative (Neg-Trace) mg/dL Urine Glucose (UA) Negative (Negative) mg/dL Urine Ketones Negative (Negative) mg/dL Urine Occult Blood Small H (Negative) Urine Nitrate Negative (Negative) Urine Bilirubin Negative (Negative) Urine Urobilinogen Less than 2 (Less than 2) mg/dL Ur Leukocyte Esterase Moderate H (Negative) Urine RBC 2 (0-3) /hpf Urine WBC 2 (0-5) /hpf Ur Squamous Epith Cells 1 (0-5) /hpf Micro UA Comment Culture not ind Ur Microscopic Review Not Reportable Urine Culture Comments Culture not ind Urine Opiates Screen (Neg) Ur Barbiturates Screen (Neg) Ur Amphetamines Screen (Neg) U Benzodiazepines Scrn (Neg) Urine Cocaine Screen (Neg) U Cannabinoids Screen (Neg) Serum Alcohol Less than 3 (0-5) mg/dL 01/06/18 Range/Units 11:42 WBC (4.0-11.0) th/mm3 RBC (4.00-5.30) mil/mm3 Hgb (11.6-15.3) gm/dL Hct (35.0-46.0) % MCV (80.0-100.0) fL MCH (27.0-34.0) pg MCHC (32.0-36.0) % RDW (11.6-17.2) % Plt Count (150-450) th/mm3 MPV (7.0-11.0) fL Neut % (Auto) (16.0-70.0) % Lymph % (Auto) (9.0-44.0) % [place] % (Auto) (0.0-8.0) % Eos % (Auto) (0.0-4.0) % Baso % (Auto) (0.0-2.0) % Neut # (Auto) (1.8-7.7) th/mm3 Lymph # (Auto) (1.0-4.8) th/mm3 [place] # (Auto) (0.0-0.9) th/mm3 Eos # (Auto) (0.0-0.4) th/mm3 Baso # (Auto) (0.0-0.2) th/mm3 WBC Differential Differential Comment Sodium (136-145) meq/L Potassium (3.5-5.1) meq/L Chloride (98-107) meq/L Carbon Dioxide (21.0-32.0) meq/L Anion Gap (5-15) meq/L BUN (7-18) mg/dL Creatinine (0.50-1.00) mg/dL Estimated GFR (>89) mL/min Random Glucose (74-106) mg/dL Calcium (8.5-10.1) mg/dL Total Bilirubin (0.2-1.0) mg/dL AST (15-37) U/L ALT (10-53) U/L Alkaline Phosphatase (45-117) U/L Total Protein (6.4-8.2) g/dL Albumin (3.4-5.0) g/dL TSH (0.358-3.740) uIU/mL Urine Color (Yellw/Straw) Urine Clarity (Clear) Urine pH (5.0-8.5) Ur Specific Smiley (1.002-1.035) Urine Protein (Neg-Trace) mg/dL Urine Glucose (UA) (Negative) mg/dL Urine Ketones (Negative) mg/dL Urine Occult Blood (Negative) Urine Nitrate (Negative) Urine Bilirubin (Negative) Urine Urobilinogen (Less than 2) mg/dL Ur Leukocyte Esterase (Negative) Urine RBC (0-3) /hpf Urine WBC (0-5) /hpf Ur Squamous Epith Cells (0-5) /hpf Micro UA Comment Ur Microscopic Review Urine Culture Comments Urine Opiates Screen Neg (Neg) Ur Barbiturates Screen Neg (Neg) Ur Amphetamines Screen Neg (Neg) U Benzodiazepines Scrn Neg (Neg) Urine Cocaine Screen Neg (Neg) U Cannabinoids Screen Pos H (Neg) Serum Alcohol (0-5) mg/dL
[2018-01-07] MEDS: Senna/Docusate Sodium 8.6/50 MG Tablet PO SCH (21:19)
[2018-01-08 06:25] VITALS: BP 127/75; PULSE 80; RESP 16; TEMP 98.4; O2SAT 97
[2018-01-08 07:48] LABS: Calcium 8.7 mg/dL (8.5-10.1); Carbon Dioxide 27.5 meq/L (21.0-32.0); Potassium 3.7 meq/L (3.5-5.1)
[2018-01-08 07:49] LABS: Chol/HDL Ratio 2.76 Ratio; HDL Cholesterol 63.3 mg/dL (40.0-60.0)
[2018-01-08] MEDS: Senna/Docusate Sodium 8.6/50 MG Tablet PO SCH (09:04)
--- NOTE | 2018-01-08 12:52 | P.HPPSY ---
Provisional Diagnosis Admission Date: January 07, 2018 12:16 [place] [facility].: 1. Adjustment disorder with other symptoms Rule-out mild hypomania Rule-out hyperthymic personality Rule-out substance-induced mood disorder Rule-out schizotypal personality 2. Cannabis use, rule out use disorder [place] II.: Deferred Competence Certification of Person's Competence To Provide Express and Informed Consent I have personally examined Jacquelyn Carson, a person being served at [facility] on, January 08, 2018 1252. Express and informed consent means consent voluntarily given in writing, by a competent person, after sufficient explanation and disclosure of the subject matter involved to enable the person to make a knowing and willful decision without any element of force, fraud, deceit, duress, or other form of constraint or coercion. This person is 18 years of age or older, is not now known to be incompetent to consent to treatment with a guardian advocate, and does not have a health care surrogate or proxy currently making medical treatment decisions. I have found this person to be one of the following: [] Competent to provide express and informed consent, as defined above, for voluntary admission to this facility and is competent to provide express and informed consent for treatment. He/she has the consistent capacity to make well reasoned, willful, and knowing decisions concerning his or her medical or mental health treatment. The person fully and consistently understands the purpose of the admission for examination/placement and is fully capable of personally exercising all rights assured under [place] [] Incompetent to provide express and informed consent to voluntary admission, and this is incompetent to provide express and informed consent to treatment. The person must be transferred to involuntary status and a petition for a guardian advocate filed with the Circuit Court. [X] Refusing to provide express and informed consent to voluntary admission but is competent to provide express and informed consent for treatment. The person must be discharged or transferred to involuntary status. Form shall be completed within 24 hours of a person's arrival at the receiving facility and filed in the clinical record of each person: 1. Admitted on a voluntary basis 2. Permitted to provide express and informed consent to his/her own treatment 3. Allowed to transfer from involuntary to voluntary status 4. Prior to permitting a person to consent to his or her own treatment after having been previously found incompetent to consent to treatment. History of Present Illness Capacity: Has capacity Chief Complaint: Perez Act History of Present Illness: Ms. 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 Patient was evaluated by the psychiatric nurse practitioner who admitted the patient to the floor. Reviewing the electronic medical record, I note the patient was admitted very briefly last year under Dr. Shane. Patient seen and examined with nurse. Chart reviewed. Case discussed with counselor. Counselor relates that patient is refusing to allow us to speak with her family but has allowed collateral information from a friend who reportedly has no concerns about the patient being discharged today. On my examination today, the patient is mildly hyperverbal but interruptable. She denies believing that her neighbors were poisoning her. She believes that her neighbors were merely upset at her for singing at 9:00 in the morning and had her Perez Acted out of spite. "Maybe I'm a bad beard," patient tells me. In any event, patient says that she will not sing in her condo going forward. She denies any suicidal or homicidal ideation, intent or plan. In particular, the patient denies any violent ideation or urge towards retribution against her neighbors. She denies any audiovisual hallucinations. She denies any command auditory hallucinations. She denies any issues with low mood or elevated mood, nor can I elicit any depressive or hypomanic/manic symptoms from the patient. She denies any sleep or appetite difficulties. She does exhibit some mild circumstantiality and is somewhat interpersonally odd. Remainder of the psychiatric ROS is negative. No acute physical complaints. The patient is requesting discharge from the inpatient unit today. Past psychiatric history: The patient adamantly denies any psychiatric diagnosis. She reports that she has been evaluated by psychiatrists in the past and given a clean bill of mental health. Her most recent psychiatric admission was here at [facility]. She denies any history of suicide attempts. Denies any history of violent behavior. Family history: The patient denies any family history of mental illness, suicide or substance use disorder. Chemical dependency history: The patient denies any abuse of drugs or alcohol. Urine toxicology was positive for cannabinoids. Social history: The patient reports that she [place] [facility] [place]. She trained as a chiropractor. She is with no children. She denies any history. She denies any access to guns or firearms. Denies any legal problems. She is a Judaism. Denies any history of trauma including physical, verbal or sexual abuse. Past medical history: Allergic rhinitis Medications: Claritin and Flonase. - Inpatient Certification Plans for Post Hospital Care: Home Review of Systems All other systems reviewed negative except as stated in [facility] - History History Provided By: Patient - Medical History Medical History: Medical History (Last Reviewed 01/07/18 @ 17:03 by ANGY Cho) Psoriasis Psoriatic arthritis - Surgical History Surgical History: Surgical History (Last Reviewed 01/07/18 @ 17:03 by ANGY Cho) H/O breast augmentation - Tobacco History Second Hand Smoke Exposure: No Tobacco Use In Past 30 Days: No Smoking Status: Never smoker Tobacco Type: Cigarettes - Alcohol History How Often Do You Have a Drink Containing Alcohol: Never - Substance Use History Substance History: Past History - Substance Use Type Other Type: medicinal marijuana Status: Active Route Used: Inhalation Frequency: PT ADMITS TO THE USE OF MEDICINAL MARJUANA Reason for Use: Increase Energy Level - Travel History Recent Travel in the [place] Within the Last 8 Weeks: No Recent Travel Out of the Country Within the Last 8 Weeks: No - Immunization History Tetanus Immunization: Unsure Hx Influenza Vaccine This Season: No Quality Measures - Patient Strengths Patient's strengths (minimum of 2): Attending to basic needs. Verbally fluent. Medications and Allergies Active Medications: Active Medications Acetaminophen (Tylenol) 650 mg PO Q4H PRN PRN Reason: Pain 1-5 or Temp >101F Al Hydrox/Mg Hydrox/Simethicone (Mag-Al Plus Susp Liq) 30 ml PO Q6H PRN PRN Reason: DYSPEPSIA Al Hydroxide/Mg Hydroxide (Milk Of Magnesia Liq) 30 ml PO Q12H PRN PRN Reason: Mild Constipation Bisacodyl (Dulcolax Supp) 10 mg RECTAL DAILY PRN PRN Reason: SEVERE CONSITIPATION Lactulose (Lactulose Liq) 30 ml PO DAILY PRN PRN Reason: SEVERE CONSITIPATION Senna/Docusate Sodium (Marge-Colace) 1 tab PO BID MARKUS Last Admin: 01/08/18 09:04 Dose: Not Given Allergies Allergy/AdvReac Type Severity Reaction Status Date / Time No Known Allergies Allergy Unverified 02/19/17 15:28 Home Medications Medication Instructions Recorded Confirmed Type No Known Home Medications 01/06/18 01/06/18 History Results - Labs CBC & Chem 7: 01/06/18 10:04 01/08/18 06:05 Labs: Laboratory Results - last 24 hr 01/08/18 01/08/18 06:05 06:05 Sodium 144 Potassium 3.7 Chloride 108 H Carbon Dioxide 27.5 Anion Gap 9 BUN 17 Creatinine 0.82 Estimated GFR 73 L Random Glucose 90 Hemoglobin A1c 6.0 Calcium 8.7 Triglycerides 103 Cholesterol 175 LDL Cholesterol, Calc 91 HDL Cholesterol 63.3 H Cholesterol/HDL Ratio 2.76 Labs reviewed. Mildly decreased GFR noted. Exam Vital signs: Vital Signs 01/07/18 16:41 01/08/18 06:24 Temperature 98.6 F 98.4 F Pulse Rate 78 80 Respiratory Rate 18 16 Blood Pressure 170/89 H 127/75 Pulse Oximetry 98 97 Intake & Output 01/07/18 01/08/18 01/08/18 18:59 06:59 18:59 Intake Total 360 / 360 Balance 360 / 360 Weight 63.6 kg Intake: Oral 360 / 360 Other: Weight On Admission 63.6 kg Narrative: Physical exam was completed by the ED provider. On my examination today, the patient appears to be in no acute physical distress. No motor abnormalities noted. No signs of intoxication or withdrawal noted. Labs and vital signs reviewed. Mental Status Examination Appearance: Appropriate, Well dressed/well groomed Consciousness: Alert Orientation: x4 Motor Activity: Normal gait, Other (No motor abnormalities noted) Speech: Unremarkable Language: Adequate Fund of Knowledge: Adequate Attention and Concentration: Adequate Memory: Unremarkable Mood: Appropriate Affect: Appropriate, Euthymic Thought Process & Associations: Circumstantial (Mild) Thought Content: Bizarre thinking (Mild) Hallucination Type: None Delusion Type: None Suicidal Ideation: No Suicidal Plan: No Suicidal Intention: No Homicidal Ideation: No Homicidal Plan: No Homicidal Intention: No Mental Status Exam Remarks: Insight and judgment are likely chronically fair to poor Assessment and Plan - Assessment (1) Adjustment disorder with other symptoms Code(s): F43.29 - Adjustment disorder with other symptoms Status: Acute - Plan Plan: 52-year-old female with psychiatric history as detailed above who presents under Perez act. On my examination today, the patient presents as mildly hyperverbal and interpersonally odd but with a relative paucity of psychiatric symptoms otherwise. Differential diagnosis is as listed above. At the present time the patient is denying suicidal or homicidal ideation. There is no evidence of significant self-care deficit. Weighing the relevant factors and based on the available evidence, I real estate accountant that the patient does not meet criteria for involuntary psychiatric hospitalization. There is no evidence of imminent risk of harm to self or others, nor is there evidence of self-care deficit to substantiate involuntary psychiatric hospitalization at this time. I have strongly recommended that she remain on the unit for further observation but she has declined. I will discharge the patient AGAINST MEDICAL ADVICE. We will bolster try to patient's protective factors by referring her for outpatient psychiatric services, although I fear that she may not follow up. Patient is also to follow up with primary care. Patient to return to psychiatric emergency room for any concerning symptoms as part of a general safety plan. I have provided no prescriptions on discharge. This note serves also as my discharge summary. Justification for Continued Inpatient Stay: N/A. Request Healthcare Surrogate/Guardian Advocate?: No
== END 2018-01-08 16:10 | disposition left against medical advice (07) ==
LOC: NEPJ 09:33 → NEDA 01-07 12:16 → H260 01-07 15:27
PROVIDERS: ADMIT Psychiatry & Neurology Psychiatry; ATTEND Psychiatry & Neurology Psychiatry